=== PATIENT | male | born 1990 | race Hispanic/Latino ===

== ENCOUNTER 2018-09-12 12:53 | Emergency (ER) | payer OTHER ==
[~2018-09-12] VITALS: Ht 170.2 cm; Wt 59.0 kg
[2018-09-12] MEDS ORDERED: MOTRIN800 MG PO (13:59)
[2018-09-12 14:06] VITALS: BP 135/77
== END 2018-09-12 14:06 | disposition home or self-care (01) | DRG 563 ==
LOC: ED 12:53
DX: S93.402A Sprain of unspecified ligament of left ankle, initial encounter (principal); W17.2XXA Fall into hole, initial encounter; Y93.89 Activity, other specified; Y92.89 Other specified places as the place of occurrence of the external cause; Y99.0 Civilian activity done for income or pay